=== PATIENT | male | born 1970 | race Caucasian/White ===

== ENCOUNTER 2019-07-22 14:41 | Emergency (ER) | payer OTHER ==
[~2019-07-22] VITALS: Ht 165.1 cm; Wt 76.2 kg
[2019-07-22 14:49] VITALS: Ht 165.1 cm; Wt 76.2 kg
[2019-07-22 17:37] VITALS: BP 143/84
== END 2019-07-22 17:37 | disposition home or self-care (01) ==
LOC: ED 14:41
DX: M54.6 Pain in thoracic spine (principal); I10 Essential (primary) hypertension; V49.49XA Driver injured in collision with other motor vehicles in traffic accident, initial encounter; Y93.I9 Activity, other involving external motion; Y92.413 State road as the place of occurrence of the external cause; Y99.8 Other external cause status
CPT/HCPCS: 90715; Q0092